=== PATIENT | male | born 1965 | race African-American/Black ===

== ENCOUNTER 2017-09-20 08:15 | Inpatient (IN) | payer OTHER ==
--- NOTE | 2017-09-16 16:22 | RADIOLOGY REPORT (SQ) ---
EXAM DESCRIPTION: CHEST PA/LATERAL COMPLETED DATE/TIME: 09/16/2017 4:10 pm REASON FOR STUDY: PRE-OP COMPARISON: None. EXAM PARAMETERS: NUMBER OF VIEWS: two views TECHNIQUE: Digital Frontal and Lateral radiographic views of the chest acquired. RADIATION DOSE: NA LIMITATIONS: none FINDINGS: LUNGS AND PLEURA: No opacities, masses or pneumothorax. No pleural effusion. MEDIASTINUM AND HILAR STRUCTURES: No masses or contour abnormalities. HEART AND VASCULAR STRUCTURES: Heart normal size. No evidence for failure. BONES: No acute findings. HARDWARE: None in the chest. OTHER: No other significant finding. IMPRESSION: NO SIGNIFICANT RADIOGRAPHIC FINDING IN THE CHEST. TECHNICAL DOCUMENTATION: JOB ID: [id number] [employer]- All Rights Reserved Reading location - IP/workstation name: [email or web address]
[2017-09-16 16:46] LABS: MEAN CORPUSCULAR HEMOGLOBIN 31.7 pg (27.0-33.4); MEAN CORPUSCULAR HGB CONC 34.9 g/dL (32.0-36.0); MEAN CORPUSCULAR VOLUME 91 fl (80-97); PLATELET COUNT 261 10^3/uL (150-450); RED BLOOD COUNT 4.73 10^6/uL (4.35-5.55); RED CELL DISTRIBUTION WIDTH 12.9 % (11.5-14.0); WHITE BLOOD COUNT 6.7 10^3/uL (4.0-10.5)
[2017-09-16 16:52] LABS: APPEARANCE,URINE CLEAR; BILIRUBIN,URINE NEGATIVE (NEGATIVE); COLOR,URINE YELLOW; GLUCOSE, URINE NEGATIVE (NEGATIVE); KETONES,URINE NEGATIVE (NEGATIVE); LEUKOCYTE ESTERASE,URINE NEGATIVE (NEGATIVE); NITRITE,URINE NEGATIVE (NEGATIVE); PROTEIN,URINE NEGATIVE (NEGATIVE); URINE SPECIFIC GRAVITY 1.023; UROBILINOGEN,URINE NEGATIVE mg/dL (<2.0)
[2017-09-16 17:06] LABS: ANION GAP 13 (5-19); BLOOD UREA NITROGEN 33 mg/dL (7-20); CALCIUM 10.1 mg/dL (8.4-10.2); CARBON DIOXIDE 28 mmol/L (22-30); CHLORIDE 103 mmol/L (98-107); GLUCOSE 82 mg/dL (75-110); POTASSIUM 4.7 mmol/L (3.6-5.0); SODIUM 143.8 mmol/L (137-145)
--- NOTE | 2017-09-16 23:00 | EKG REPORT ---
SEVERITY:- BORDERLINE ECG - SINUS RHYTHM PROBABLE LEFT ATRIAL ABNORMALITY MINIMAL ST DEPRESSION, INFERIOR LEADS : Confirmed by: Amanda Stockton MD 16-Sep-2017 22:59:41
[~2017-09-20 08:15] MED LIST: BUPIVACAINE INJ/PF LIPOSOME/PF 266 MG/20 ML SDV ONE; CEFAZOLIN INJ 1 GM VIAL IV PRN; IBUPROFEN 800 MG in NORMAL SALINE 250 ML IV PRN; LACTATED RINGERS 1000 ML IV PRN; LANSOPRAZOLE 15 MG TAB.RAP.DR PO PRN; LIDOCAINE 0.5% INJ-PF (5 MG/ML) 50 ML SDV SUBCUT PRN; OXYCODONE HCL SR 10 MG TABLET PO PRN; VANCOMYCIN HCL 1,000 MG in DEXTROSE 5%-WATER 250 ML IV PRN
[2017-09-20] MEDS ORDERED: MIDAZOLAM 2 MG/2 ML INJ ONE (09:45)
[2017-09-20] MEDS ORDERED: FENTANYL CITRATE INJ/PF 100 MCG/2 ML AMPUL ONE ×2 (09:45)
[2017-09-20] MEDS ORDERED: TRANEXAMIC ACID INJ/PF 1,000 MG/10 ML SDV IV ONE ×2 (09:46→15:00)
[2017-09-20] MEDS ORDERED: PROPOFOL INJ 200 MG/20 ML VIAL IV ONE (09:46)
[2017-09-20] MEDS ORDERED: TETRACAINE HCL/PF 20MG/2ML AMPULE (SPINAL) ONE (10:31)
[2017-09-20] MEDS: BUPIVACAINE INJ/PF LIPOSOME/PF 266 MG/20 ML SDV INJ PRN ×2 (11:14→12:21)
[2017-09-20] MEDS: THROMBIN (BOVINE) TOPICAL 20000 UNIT VIAL ONE ×2 (11:16→12:21)
[2017-09-20] MEDS: THROMBIN (BOVINE) 5000 UNIT EPITAXIS KIT ONE ×2 (11:17→12:21)
[2017-09-20] MEDS ORDERED: DIPHENHYDRAMINE HCL 50 MG/ML VIAL IV PRN ×2 (12:53→13:03)
[2017-09-20] MEDS ORDERED: PROMETHAZINE HCL INJ 25 MG/1 ML VIAL IV PRN (12:53)
[2017-09-20] MEDS ORDERED: FENTANYL CITRATE INJ/PF 100 MCG/2 ML AMPUL IV PRN ×3 (12:53)
[2017-09-20] MEDS ORDERED: MORPHINE SULFATE 10 MG/ML INJ IV PRN ×2 (13:03)
[2017-09-20] MEDS ORDERED: RINGERS SOLUTION,LACTATED 1,000 ML IV PRN (13:03)
[2017-09-20] MEDS ORDERED: MAG HYDROX/AL HYDROX/SIMETH SUSP 30 ML UDCUP PO PRN (13:03)
[2017-09-20] MEDS ORDERED: ZOLPIDEM TARTRATE 5 MG TABLET PO PRN (13:03)
--- NOTE | 2017-09-20 13:08 | Operative Report ---
Operative Report DATE OF SURGERY: 09/20/17 PREOPERATIVE DIAGNOSIS: Left knee arthritis OPERATION: Left knee arthroplasty SURGEON: JUAN PABLO GREEN ANESTHESIA: Spinal TISSUE REMOVED OR ALTERED: Bone to pathology ESTIMATED BLOOD LOSS: 100 PROCEDURE: Implants used: Femur: James triathlon size 7 CR femur Tibia: 6 tibia Tibial liner: 9 mm CS insert Patella: 38 mm oval patella Procedure with the patient supine on the operating table the left the limb is prepped and draped in a sterile fashion. The limb was elevated for exsanguination and the tourniquet inflated to 280 torr. A standard midline median parapatellar approach the knee is taken. Access is gained to the femoral canal through the intercondylar notch. Intramedullary alignment instrumentation used to resect 10 mm of distal femur in 5 of valgus. Sizing guide indicated a size 7 femur. Appropriate cutting jig is then used to fashion anterior posterior and chamfer cuts. A trial reduction femurs performed and this is judged to be adequate. Attention was next turned to the tibia. Using an extra medullary alignment system 9 millimeters was resected off the lateral tibial plateau. This is sized to a size 6 tibia. A trial reduction was now performed with a 7 femur and a 6 tibia using a 9 millimeters spacer. It is full extension and central patellofemoral tracking. The articular surface the patella was next resected using an oscillating saw. All trial implants were removed. Polymethylmethacrylate is mixed and used to cement the above implants in place. On adequate curing the cement excess cement was removed the tourniquet was deflated hemostasis obtained the wound is then closed in layers using interrupted Vicryl followed by dimitri. A sterile compressive dressing was applied and the patient returned to recovery room in satisfactory condition.
--- NOTE | 2017-09-20 14:03 | RADIOLOGY REPORT (SQ) ---
EXAM DESCRIPTION: KNEE LEFT 2 VIEWS COMPLETED DATE/TIME: 09/20/2017 1:49 pm REASON FOR STUDY: Post OP -Long Cassette in PACU M17.12 UNILATERAL PRIMARY OSTEOARTHRITIS, LEFT KNE E COMPARISON: None. NUMBER OF VIEWS: Two view(s). TECHNIQUE: Digital radiographic images of the left knee post-procedure. LIMITATIONS: None. FINDINGS: BONES: No worrisome or unexpected findings post-procedure. DEVICE: Left knee total arthroplasty. Position and alignment are anatomic. SOFT TISSUES: No worrisome findings. Expected postoperative soft tissue changes. IMPRESSION: SATISFACTORY POSTOPERATIVE LEFT KNEE. TECHNICAL DOCUMENTATION: JOB ID: [id number] [employer]- All Rights Reserved Reading location - IP/workstation name: [email or web address]
[2017-09-20] MEDS: MORPHINE SULFATE 10 MG/ML INJ IV PRN ×3 (14:55→20:37)
[2017-09-20] MEDS ORDERED: TRANEXAMIC ACID INJ/PF 1,000 MG/10 ML SDV IV SCH (15:00)
--- NOTE | 2017-09-20 15:17 | Physician Advisory Note ---
Physician Advisor ProgressNote .: Pursuant to the plan for Shara Coon, I have reviewed the medical record for this patient. Physician Advisor Statement: H&P now on chart documents use of Motrin with "variable" results, interference with stairs/errands alone/his usual daily golfing, and has excellent description of physicial exam, as usual. Please document, for those reviewers who may not be well versed in ortho terminology: 1. Does documentation of "loose body", and "full-thickness cartilage loss" mean that there are "osteophytes" or "joint space narrowing" or "bone on bone" present in the joint? - From my understanding, "full-thickness cartilage loss" (not a specific term CMS looks for) means that there is "bone on bone", one of the terms CMS does recognize indicates that the best tx is surgical (so nonsurgical options don't have to be exhausted before surgery...). Thanks for all the work you have been doing on improving documentation of "surgical necessity"! CK
[2017-09-20] MEDS: MORPHINE SULFATE 10 MG/ML INJ IM PRN ×2 (15:43→19:31)
[2017-09-20] MEDS: OXYCODONE HCL IR 5 MG TABLET PO PRN ×2 (15:44→21:19)
[2017-09-20] MEDS ORDERED: ONDANSETRON HCL INJ/PF 4 MG/2 ML SDV ONE (16:06)
[2017-09-20] MEDS ORDERED: PHENYLEPHRINE HCL INJ/PF 10 MG/1 ML SDV ONE (16:06)
[2017-09-20] MEDS ORDERED: LIDOCAINE 2% INJ-PF (20 MG/ML) 2 ML AMPUL ONE (16:06)
[2017-09-20] MEDS ORDERED: SUCCINYLCHOLINE CHLORIDE INJ 200 MG/10 ML VIAL ONE (16:06)
[2017-09-20] MEDS ORDERED: GLYCOPYRROLATE 1 MG/5 ML SYRINGE ONE (16:06)
[2017-09-20] MEDS ORDERED: DEXAMETHASONE SOD PHOSPHATE INJ 4 MG/1 ML VIAL ONE (16:06)
[2017-09-20] MEDS: SENNOSIDES/DOCUSATE 8.6-50 MG 1 EACH TABLET PO SCH (17:56)
[2017-09-20] MEDS: PREGABALIN 75 MG CAPSULE PO SCH (17:56)
[2017-09-20] MEDS: ONDANSETRON HCL INJ/PF 4 MG/2 ML SDV IV PRN (20:38)
[2017-09-20] MEDS: OXYCODONE HCL SR 10 MG TABLET PO SCH (21:19)
[2017-09-21] MEDS ORDERED: VANCOMYCIN HCL 1,000 MG in DEXTROSE 5%-WATER 250 ML IV ONE (01:00)
[2017-09-21] MEDS: MORPHINE SULFATE 10 MG/ML INJ IV PRN ×4 (01:01→21:05)
[2017-09-21 05:27] LABS: HEMATOCRIT 37.4 % (37.9-51.0); MEAN CORPUSCULAR HEMOGLOBIN 31.6 pg (27.0-33.4); MEAN CORPUSCULAR HGB CONC 34.9 g/dL (32.0-36.0); MEAN CORPUSCULAR VOLUME 91 fl (80-97); PLATELET COUNT 199 10^3/uL (150-450); RED BLOOD COUNT 4.12 10^6/uL (4.35-5.55); RED CELL DISTRIBUTION WIDTH 12.8 % (11.5-14.0); WHITE BLOOD COUNT 9.3 10^3/uL (4.0-10.5)
[2017-09-21] MEDS: LANSOPRAZOLE 30 MG TAB.RAP.DR PO SCH (05:35)
[2017-09-21] MEDS: ONDANSETRON 4 MG TAB.RAPDIS PO PRN (05:35)
[2017-09-21] MEDS: OXYCODONE HCL IR 5 MG TABLET PO PRN ×3 (05:35→17:16)
[2017-09-21] MEDS: ACETAMINOPHEN 325 MG TABLET PO PRN ×2 (05:35→21:05)
[2017-09-21 05:50] LABS: ANION GAP 10 (5-19); BLOOD UREA NITROGEN 25 mg/dL (7-20); CALCIUM 9.5 mg/dL (8.4-10.2); CARBON DIOXIDE 22 mmol/L (22-30); CHLORIDE 102 mmol/L (98-107); GLUCOSE 112 mg/dL (75-110); POTASSIUM 4.6 mmol/L (3.6-5.0); SODIUM 133.9 mmol/L (137-145)
--- NOTE | 2017-09-21 06:51 | PDOC PROGRESS REPORT ---
Subjective Progress Note for:: 09/21/17 Reason For Visit: M17.12 UNILATERAL PRIMARY OSTEOARTHRITIS, LEFT KNE 52-year-old black male postop day 1 left knee arthroplasty. Patient complaining of some discomfort this morning. Patient has not been out of bed yet because of her prolonged acting spinal last night which cleared at midnight. Physical Exam Vital Signs: Temp Pulse Resp BP Pulse Ox 36.4 C 92 16 118/73 98 09/20/17 23:40 09/20/17 23:40 09/20/17 23:40 09/20/17 23:40 09/20/17 23:40 Intake & Output 09/19/17 09/20/17 09/21/17 06:59 06:59 06:59 Intake Total 6952 Output Total 1100 Balance 5852 Weight 91.1 kg General appearance: PRESENT: mild distress Head exam: PRESENT: normocephalic Respiratory exam: PRESENT: unlabored Cardiovascular exam: PRESENT: RRR Vascular exam: PRESENT: normal capillary refill GI/Abdominal exam: PRESENT: soft Rectal exam: PRESENT: deferred Extremities exam: PRESENT: other - Left knee dressing clean dry and intact. Distal neurovascular examination is intact. Neurological exam: PRESENT: alert, awake, oriented to person, oriented to place , oriented to time, oriented to situation. ABSENT: motor sensory deficit Psychiatric exam: PRESENT: appropriate affect, normal mood. ABSENT: homicidal ideation, suicidal ideation Skin exam: PRESENT: dry, intact, warm. ABSENT: cyanosis, rash Results Laboratory Results: 09/21/17 04:59 09/21/17 04:59 09/20/17 09/20/17 09/21/17 08:57 10:05 04:59 WBC 9.3 RBC 4.12 L Hgb 13.0 L Hct 37.4 L MCV 91 MCH 31.6 MCHC 34.9 RDW 12.8 Plt Count 199 Sodium Potassium Cancelled 4.4 Chloride Carbon Dioxide Anion Gap BUN Creatinine Est GFR ( Amer) Est GFR (Non-Af Amer) Glucose Calcium 09/21/17 04:59 WBC RBC Hgb Hct MCV MCH MCHC RDW Plt Count Sodium 133.9 L Potassium 4.6 Chloride 102 Carbon Dioxide 22 Anion Gap 10 BUN 25 H Creatinine 1.21 Est GFR ( Amer) > 60 Est GFR (Non-Af Amer) > 60 Glucose 112 H Calcium 9.5 Impressions: Chest X-Ray 09/16/17 16:00 IMPRESSION: NO SIGNIFICANT RADIOGRAPHIC FINDING IN THE CHEST. Knee X-Ray 09/20/17 13:04 IMPRESSION: SATISFACTORY POSTOPERATIVE LEFT KNEE. Status: Imported from PACS Assessment & Plan - Diagnosis (1) Arthritis of left knee Is this a current diagnosis for this admission?: Yes Plan: 52-year-old black male postop day 1 left knee arthroplasty. Patient's not been mobilized out of bed yet. He is not a candidate for consideration of discharge home because of unknown functional status. He will be seen by physical therapy today be mobilized and weightbearing as tolerated basis. - Time Time Spent with patient: 15-24 minutes Anticipated discharge: Home with Homehealth Within: within 24 hours
[2017-09-21] MEDS ORDERED: FENTANYL CITRATE INJ/PF 100 MCG/2 ML AMPUL ONE (08:17)
[2017-09-21] MEDS: PREGABALIN 75 MG CAPSULE PO SCH ×2 (09:49→17:16)
[2017-09-21] MEDS: ASPIRIN 81 MG TABLET, ENT COATED PO SCH (09:49)
[2017-09-21] MEDS: LISINOPRIL 10 MG TABLET PO SCH (09:49)
[2017-09-21] MEDS: OXYCODONE HCL SR 10 MG TABLET PO SCH ×2 (09:50→21:05)
[2017-09-21] MEDS: PRENATAL VITAMIN W DHA CAPSULE PO SCH (09:50)
[2017-09-21] MEDS: FENTANYL CITRATE INJ/PF 100 MCG/2 ML AMPUL IV PRN ×5 (09:50→19:00)
[2017-09-21] MEDS: SENNOSIDES/DOCUSATE 8.6-50 MG 1 EACH TABLET PO SCH ×2 (09:50→17:16)
[2017-09-21] MEDS: HYDROCHLOROTHIAZIDE 50 MG TABLET PO SCH (09:51)
[2017-09-21] MEDS ORDERED: (PENDING PHARMACY ID) (Lisinopril [Lisinopril] 40 MG) PO SCH (10:00)
[2017-09-21] MEDS ORDERED: (PENDING PHARMACY ID) (Prazosin Hcl [Prazosin Hcl] 1 MG) PO SCH (10:00)
[2017-09-21] MEDS: ONDANSETRON HCL INJ/PF 4 MG/2 ML SDV IV PRN ×2 (11:31→17:16)
[2017-09-21] MEDS ORDERED: DOXAZOSIN MESYLATE 1 MG TABLET PO SCH (22:00)
[2017-09-22] MEDS: ONDANSETRON 4 MG TAB.RAPDIS PO PRN ×2 (04:53→12:56)
[2017-09-22] MEDS: OXYCODONE HCL IR 5 MG TABLET PO PRN ×2 (04:53→12:54)
[2017-09-22] MEDS: ACETAMINOPHEN 325 MG TABLET PO PRN ×2 (04:53→12:54)
[2017-09-22] MEDS: LANSOPRAZOLE 30 MG TAB.RAP.DR PO SCH (04:54)
[2017-09-22 06:58] LABS: HEMATOCRIT 35.8 % (37.9-51.0); HEMOGLOBIN 12.5 g/dL (13.5-17.0); MEAN CORPUSCULAR HEMOGLOBIN 31.6 pg (27.0-33.4); MEAN CORPUSCULAR VOLUME 90 fl (80-97); PLATELET COUNT 173 10^3/uL (150-450); RED BLOOD COUNT 3.96 10^6/uL (4.35-5.55); RED CELL DISTRIBUTION WIDTH 12.4 % (11.5-14.0)
--- NOTE | 2017-09-22 07:07 | PDOC DISCHARGE SUMMARY ---
General - Admit/Disc Date/PCP Admission Date/Primary Care Provider: 09/20/17 08:15 MILLY REYNOLDS MD Discharge Date: 09/22/17 - Discharge Diagnosis (1) Arthritis of left knee Is this a current diagnosis for this admission?: Yes - Additional Information Resuscitation Status: Full Code Discharge Diet: Regular Discharge Activity: Balance Activity w/Rest, No Driving, No tub bath Home Medications: Hydrochlorothiazide 50 mg PO DAILY 09/16/17 Lisinopril 40 mg PO DAILY 09/16/17 Prazosin HCl 1 mg PO DAILY 09/16/17 Sildenafil Citrate [Viagra] 50 mg PO ASDIR PRN 09/16/17 Zolpidem Tartrate [Ambien 5 mg Tablet] 5 mg PO DAILY 09/16/17 Aspirin [Ecotrin 81 mg EC Tablet] 81 mg PO DAILY tabec 09/22/17 Oxycodone HCl [Oxy-Ir 5 mg Tablet] 5 mg PO Q6HP PRN tablet 09/22/17 History of Present Illness History of Present Illness: CHARLES MARADIAGA is a 52 year old male Patient is a 52-year-old black male with progressive left knee pain and functional disability secondary osteoarthritis. Patient is admitted for elective left knee arthroplasty. Hospital Course Hospital Course: Patient is admitted through the operating where he undergoes uncomplicated left knee arthroplasty. Is returned to floor in satisfactory condition. Initial physical therapy was delayed because of a prolonged acting spinal. On postop day 1 the patient began ambulating with physical therapy made excellent progress. Pain control remains problematic throughout the patient's hospitalization. Physical Exam Vital Signs: Temp Pulse Resp BP Pulse Ox 36.8 C 105 H 16 136/74 H 96 09/21/17 23:05 09/21/17 23:05 09/21/17 23:05 09/21/17 23:05 09/21/17 23:05 Intake & Output 09/21/17 09/22/17 09/23/17 06:59 06:59 06:59 Intake Total 1974 916 Output Total 1100 775 Balance 5852 141 Weight 91.1 kg 87.6 kg General appearance: PRESENT: no acute distress, mild distress Head exam: PRESENT: normocephalic Respiratory exam: PRESENT: unlabored Cardiovascular exam: PRESENT: RRR Pulses: PRESENT: +1 pedal pulses bilateral Vascular exam: PRESENT: normal capillary refill GI/Abdominal exam: PRESENT: soft Rectal exam: PRESENT: deferred Extremities exam: PRESENT: other - Left knee compression dressing is taken down on postop day #2. Underlying op site is clean dry and intact. Minimal pedal edema. Distal neurovascular examination is intact. Neurological exam: PRESENT: alert, awake, oriented to person, oriented to place , oriented to time, oriented to situation. ABSENT: motor sensory deficit Psychiatric exam: PRESENT: appropriate affect, normal mood. ABSENT: homicidal ideation, suicidal ideation Skin exam: PRESENT: dry, intact, warm. ABSENT: cyanosis, rash Results Laboratory Results: 09/21/17 04:59 Impressions: Chest X-Ray 09/16/17 16:00 IMPRESSION: NO SIGNIFICANT RADIOGRAPHIC FINDING IN THE CHEST. Knee X-Ray 09/20/17 13:04 IMPRESSION: SATISFACTORY POSTOPERATIVE LEFT KNEE. Status: Imported from PACS Qualifiers - * PATIENT BEING DISCHARGED WITH ANY OF THE FOLLOWING DIAGNOSIS: No VTE patient discharged on overlapping Therapy?: Yes Plan Discharge Plan: Patient to be discharged home with home health services and DME. Follow-up with Dr[facility] B[facility] for surgery in 2 weeks for staple removal. Time Spent: Less than 30 Minutes
[2017-09-22] MEDS: FENTANYL CITRATE INJ/PF 100 MCG/2 ML AMPUL IV PRN (08:14)
[2017-09-22] MEDS: PRENATAL VITAMIN W DHA CAPSULE PO SCH (09:39)
[2017-09-22] MEDS: OXYCODONE HCL SR 10 MG TABLET PO SCH (09:39)
[2017-09-22] MEDS: SENNOSIDES/DOCUSATE 8.6-50 MG 1 EACH TABLET PO SCH (09:39)
[2017-09-22] MEDS: ASPIRIN 81 MG TABLET, ENT COATED PO SCH (09:40)
[2017-09-22] MEDS: LISINOPRIL 10 MG TABLET PO SCH (09:40)
[2017-09-22] MEDS: PREGABALIN 75 MG CAPSULE PO SCH (09:41)
[2017-09-22] MEDS: HYDROCHLOROTHIAZIDE 50 MG TABLET PO SCH (09:44)
[2017-09-22] MEDS ORDERED: IBUPROFEN 800 MG in NORMAL SALINE 250 ML IV ONE (12:30)
[2017-09-22 13:24] VITALS: BP 119/75
== END 2017-09-22 13:55 | disposition home health service (06) | DRG 470 ==
LOC: INOR 08:15 → 4S 14:45
PROVIDERS: ADMIT Orthopaedic Surgery; ATTEND Orthopaedic Surgery
PROC: 0SRD0J9 Replacement of Left Knee Joint with Synthetic Substitute, Cemented, Open Approach (ICD-10-PCS; principal; 2017-09-20 10:30)
DX: M17.12 Unilateral primary osteoarthritis, left knee (principal); I10 Essential (primary) hypertension; E78.5 Hyperlipidemia, unspecified; F32.9 Major depressive disorder, single episode, unspecified; G47.00 Insomnia, unspecified
CPT/HCPCS: 01402; 36415; 71046; 80048; 81001; 84132; 85027; 88304; 88311; 93005; 93010; 94799; C2625; C9290; J0330; J0690; J1100; J1741; J2250; J2270; J2370; J2405; J2704; J3010; J3370; J3490; J7050; J7060; S0119

== ENCOUNTER 2018-12-16 11:13 | Emergency (ER) | payer OTHER ==
[2018-12-16 11:56] VITALS: BP 120/59
--- NOTE | 2018-12-16 13:37 | ER Document Report ---
Entered by JAMES VÁSQUEZ SCRIBE 12/16/18 1229 Acting as scribe for:ANEESH MAGAÑA DO ED Extremity Problem, Upper - General Chief Complaint: Arm Problem Stated Complaint: ARM NUMBNESS Time Seen by Provider: 12/16/18 11:36 Primary Care Provider: MILLY REYNOLDS MD [Primary Care Provider] - Follow up in 3-5 days Mode of Arrival: Ambulatory Information source: Patient Notes: Patient is a 53 -year-old male who presents to the emergency department today with complaint of left shoulder pain with associated left hand tingling for x1 w [place]. Patient states both started at about the same time. Patient states the tingling seems to only be in his 2nd, 3rd, and 4th fingers on the left hand. Patient states that he has been playing golf on a daily basis recently. Patient denies any fall, trauma, chest pain, shortness of breath, or cough. TRAVEL OUTSIDE OF THE [place] IN LAST 30 DAYS: No - Related Data Allergies/Adverse Reactions: shellfish derived Allergy (Verified 12/16/18 11:17) Hives Past Medical History - General Information source: Patient - Social History Smoking Status: Never Smoker Cigarette use (# per day): No Chew tobacco use (# tins/day): No Frequency of alcohol use: Occasional Drug Abuse: None Family History: Reviewed & Not Pertinent Patient has suicidal ideation: No Patient has homicidal ideation: No - Past Medical History Cardiac Medical History: Reports: Hx Hypertension Pulmonary Medical History: Reports: Hx Sleep Apnea - Uses CPAP Musculoskeletal Medical History: Reports Hx Arthritis - knees Psychiatric Medical History: Reports: Hx Post Traumatic Stress Disorder Traumatic Medical History: Reports: Hx Fractures - right arm, plates and screwss placed Past Surgical History: Reports: Hx Herniorrhaphy - umbilical, Hx Orthopedic Surgery - rt arm, Hx Tonsillectomy - Immunizations Hx Diphtheria, Pertussis, Tetanus Vaccination: Yes Review of Systems - Review of Systems Constitutional: No symptoms reported EENT: No symptoms reported Cardiovascular: No symptoms reported Respiratory: No symptoms reported Gastrointestinal: No symptoms reported Genitourinary: No symptoms reported Male Genitourinary: No symptoms reported Musculoskeletal: See HPI, Joint pain - left shoulder pain Skin: No symptoms reported Hematologic/Lymphatic: No symptoms reported Neurological/Psychological: See HPI, Tingling - into left hand -: Yes All other systems reviewed and negative Physical Exam - Vital signs Vitals: Temp Pulse Resp BP Pulse Ox 97.9 F 93 16 120/59 L 97 12/16/18 11:55 12/16/18 11:55 12/16/18 11:55 12/16/18 11:55 12/16/18 11:55 Interpretation: Normal - General General appearance: Appears well, Alert - HEENT Head: Normocephalic, Atraumatic Eyes: Normal Pupils: PERRL - Respiratory Respiratory status: No respiratory distress Chest status: Nontender Breath sounds: Normal Chest palpation: Normal - Cardiovascular Rhythm: Regular Heart sounds: Normal auscultation Murmur: No - Abdominal Inspection: Normal Distension: No distension Bowel sounds: Normal Tenderness: Nontender Organomegaly: No organomegaly - Back Back: Normal, Tender - medial L scapula, reproducible - Extremities General upper extremity: Normal inspection, Nontender, Normal color, Normal ROM, Normal temperature General lower extremity: Normal inspection, Nontender, Normal color, Normal ROM, Normal temperature, Normal weight bearing. No: Rodrigo's sign - Neurological Neuro grossly intact: Yes Cognition: Normal Orientation: AAOx4 [place] Coma Scale Eye Opening: Spontaneous [place] Coma Scale Verbal: Oriented [place] Coma Scale Motor: Obeys Commands [place] Coma Scale Total: 15 Speech: Normal Cranial nerves: Normal Cerebellar coordination: Normal Motor strength normal: LUE, RUE, LLE, RLE Additional motor exam normals: Equal departmental buyer, Dorsiflexion, Plantar flexion. No: Involuntary movements, Pronator drift, Weakness, Hemiplegia Sensory: Normal, Altered light touch - Decreased sensation over second through fourth digits on L - Psychological Associated symptoms: Normal affect, Normal mood - Skin Skin Temperature: Warm Skin Moisture: Dry Skin Color: Normal Course - Re-evaluation Re-evalutation: 12/16/18 13:35 Patient is a 53-year-old male who came in complaining of medial scapular pain on the left and paresthesias in his second through fourth digits on the left. He has been golfing a lot lately. Patient saw a installment dealer recently and had a normal stress test within the last 2 weeks. Denies chest pain or trouble breathing. Pain and symptoms are reproducible. Given a cock up splint to use for possible carpal tunnel. Paresthesias are not all the way down his arm but just in his fingers in the median nerve distribution. Patient with no decreased range of motion, strength. No evidence for CVA, [place]. Appears well otherwise. Follow-up with PMD. Return if any worsening or concerning symptoms. Understands agrees with plan. Stable for discharge. - Vital Signs Vital signs: Temp Pulse Resp BP Pulse Ox 97.9 F 93 16 120/59 L 97 12/16/18 11:55 12/16/18 11:55 12/16/18 11:55 12/16/18 11:55 12/16/18 11:55 Procedures - Immobilization Left Wrist Pre-Proc Neuro Vasc Exam: Normal Immobilizer type: Cock-up Performed by: RN Post-Proc Neuro Vasc Exam: Normal Alignment checked and good: Yes Discharge - Discharge Clinical Impression: Paresthesia and pain of left extremity, Carpal tunnel syndrome of left wrist, Rhomboid muscle pain Condition: Stable Disposition: HOME, SELF-CARE Instructions: Carpal Tunnel Syndrome ([facility]), Muscle Strain ([facility]), Numbness or Paresthesia ([facility]) Additional Instructions: Please follow-up with your doctor. Use the splint as needed for comfort. Prescriptions: Cyclobenzaprine HCl [Flexeril 10 Mg Tablet] 10 mg PO TID #30 tablet Referrals: MILLY REYNOLDS MD [Primary Care Provider] - Follow up in 3-5 days I personally performed the services described in the documentation, reviewed and edited the documentation which was dictated to the scribe in my presence, and it accurately records my words and actions.
== END 2018-12-16 12:40 | disposition home or self-care (01) ==
LOC: ER 11:13
DX: G56.02 Carpal tunnel syndrome, left upper limb (principal); R20.0 Anesthesia of skin; M79.10 Myalgia, unspecified site; M25.512 Pain in left shoulder; I10 Essential (primary) hypertension; Z91.013 Allergy to seafood
CPT/HCPCS: 99283; L3908